=== PATIENT | male | born 1960 | race Caucasian/White ===

== ENCOUNTER 2018-05-29 07:02 | Emergency (ER) | payer BC ==
[2018-05-29] MEDS ORDERED: Albuterol/Ipratropium 3.0-0.5 MG/3 ML Neb Soln NEB ONE (07:18)
[2018-05-29] MEDS ORDERED: methylPREDNISolone Sodium Succinate 125 MG/2 ML SDV IVPUSH ONE (07:19)
[2018-05-29] MEDS ORDERED: Sodium Chloride 0.9% 1,000 ML IV SCH (07:30)
--- NOTE | 2018-05-29 07:31 | EDM.PDOC ---
ED HPI GENERAL MEDICAL PROBLEM - General Chief Complaint: Respiratory Problem Stated Complaint: TROUBLE BREATHING- COPD Time Seen by Provider: 05/29/18 07:30 Source of Information: Reports: Patient - History of Present Illness INITIAL COMMENTS - FREE TEXT/NARRATIVE: HISTORY AND PHYSICAL: History of present illness: [Patient presents with shortness of breath increasing in severity over the last 8 days, he does have a history of COPD he is on a steroid inhaler as well as has a rescue inhaler at his disposal he has been using his rescue inhaler more as he has recently had a a field her rest at around his house as well as he works in a foundary No fever nausea vomiting chills sweats no chest pain headache dizziness palpitation no bowel or urine symptoms Initially patient had decreased breath sounds he did get Solu-Medrol and a DuoNeb chest is clear moving air well without wheeze O2 sats remained above 90, we did check an ambulatory O2 sat again above 90 Patient is in no distress with no pursed lip breathing or tripoding no accessory muscles states he feels much better Review of systems: As per history of present illness and below otherwise all systems reviewed and negative. Past medical history: As per history of present illness and as reviewed below otherwise noncontributory. Surgical history: As per history of present illness and as reviewed below otherwise noncontributory. Social history: No reported history of drug or alcohol abuse. Family history: As per history of present illness and as reviewed below otherwise noncontributory. Physical exam: HEENT: Atraumatic, normocephalic, pupils reactive, negative for conjunctival pallor or scleral icterus, mucous membranes moist, throat clear, neck supple, nontender, trachea midline. Lungs: Clear to auscultation, breath sounds equal bilaterally, chest nontender. Heart: S1S2, regular, negative for clicks, rubs, or JVD. Abdomen: Soft, nondistended, nontender. Negative for masses or hepatosplenomegaly. Negative for costovertebral tenderness. Pelvis: Stable nontender. Genitourinary: Deferred. Rectal: Deferred. Extremities: Atraumatic, negative for cords or calf pain. Neurovascular unremarkable. Neuro: Awake, alert, oriented. Cranial nerves II through XII unremarkable. Cerebellum unremarkable. Motor and sensory unremarkable throughout. Exam nonfocal. Diagnostics: [CBC CMP troponin BNP INR D-dimer Chest 1 view ] Therapeutics: [Normal saline 1 25 mL per hour Solu-Medrol 125 mg IV DuoNeb Prednisone 10 mg, 43 days 3 tabs 3 days 2 tabs 3 days 1 tab 3 days ] Impression: [COPD] exacerbation Definitive disposition and diagnosis as appropriate pending reevaluation and review of above. - Related Data Allergies Allergy/AdvReac Type Severity Reaction Status Date / Time No Known Allergies Allergy Verified 05/29/18 07:22 Home Meds: Home Meds Albuterol [Ventolin HFA] 2 puff INH ASDIRECTED 05/29/18 [History] Glycopyrrolate/Formoterol Fum [Bevespi Aerosphere Inhaler] 2 puff INH BID [History] Past Medical History Respiratory History: Reports: COPD - Infectious Disease History Infectious Disease History: Reports: Chicken Pox, Hepatitis C, Measles Social & Family History - Family History Family Medical History: Noncontributory - Tobacco Use Smoking Status *Q: Former Smoker Used Tobacco, but Quit: Yes Month/Year Tobacco Last Used: 2016 - Caffeine Use Caffeine Use: Reports: Coffee - Recreational Drug Use Recreational Drug Use: No ED ROS GENERAL - Review of Systems Review Of Systems: See Below ED EXAM, GENERAL - Physical Exam Exam: See Below Course - Vital Signs Last Recorded V/S: Last Vital Signs Temp 97.6 F 05/29/18 07:19 Pulse 89 05/29/18 07:19 Resp 18 05/29/18 07:19 BP 162/99 H 05/29/18 07:19 Pulse Ox 90 L 05/29/18 07:19 - Orders/Labs/Meds Orders: Active Orders 24 hr Category Date Time Status EKG Documentation Completion [RC] STAT Care 05/29/18 07:18 Active RT Aerosol Therapy [RC] ASDIRECTED Care 05/29/18 07:18 Active Chest 1V Frontal [CR] Stat Exams 05/29/18 07:18 Taken D-DIMER QUANTITATIVE [COAG] Stat Lab 05/29/18 07:40 Received INR,PT,PROTHROMBIN TIME [COAG] Stat Lab 05/29/18 07:40 Received Sodium Chloride 0.9% [Normal Saline] 1,000 ml Med 05/29/18 07:30 Active IV STAT Medication Orders Sodium Chloride (Normal Saline) 1,000 mls @ 125 mls/hr IV STAT NADEGE Last Admin: 05/29/18 07:45 Dose: 125 mls/hr Labs: Laboratory Tests 05/29/18 05/29/18 05/29/18 Range/Units 07:40 07:40 07:40 WBC 8.99 (4.0-11.0) K/uL RBC 5.02 (4.50-5.90) M/uL Hgb 15.2 (13.0-17.0) g/dL Hct 42.7 (38.0-50.0) % MCV 85.1 (80.0-98.0) fL MCH 30.3 (27.0-32.0) pg MCHC 35.6 (31.0-37.0) g/dL RDW Std Deviation 39.5 (28.0-62.0) fl RDW Coeff of Lissette 13 (11.0-15.0) % Plt Count 259 (150-400) K/uL MPV 9.30 (7.40-12.00) fL Add Manual Diff YES Neutrophils % (Manual) 50 (48.0-80.0) % Band Neutrophils % 1 % Lymphocytes % (Manual) 18 (16.0-40.0) % Monocytes % (Manual) 3 (0.0-15.0) % Eosinophils % (Manual) 23 H (0.0-7.0) % Basophils % (Manual) 5 H (0.0-1.5) % Nucleated RBC % 0.0 /100WBC Absolute Seg Neuts 4.5 (1.4-5.7) Band Neutrophils # 0.1 Lymphocytes # (Manual) 1.6 (0.6-2.4) Monocytes # (Manual) 0.3 (0.0-0.8) Eosinophils # (Manual) 2.1 H (0.0-0.7) Basophils # (Manual) 0.4 H (0.0-0.1) Nucleated RBCs # 0 K/uL Sodium 140 (136-148) mmol/L Potassium 3.7 (3.5-5.1) mmol/L Chloride 105 (98-107) mmol/L Carbon Dioxide 27.9 (21.0-32.0) mmol/L BUN 14 (7.0-18.0) mg/dL Creatinine 1.1 (0.8-1.3) mg/dL Est Cr Clr Drug Dosing 72.31 mL/min Estimated GFR (MDRD) > 60.0 ml/min Glucose 102 (74-106) mg/dL Calcium 9.4 (8.5-10.1) mg/dL Total Bilirubin 0.9 (0.2-1.0) mg/dL AST 17 (15-37) IU/L ALT 30 (14-63) IU/L Alkaline Phosphatase 97 (46-116) U/L Troponin I < 0.050 (0.000-0.056) ng/mL B-Natriuretic Peptide < 15 (<100) PG/ML Total Protein 8.2 (6.4-8.2) g/dL Albumin 4.2 (3.4-5.0) g/dL Globulin 4.0 H (2.0-3.5) g/dL Albumin/Globulin Ratio 1.1 L (1.3-2.8) Urine Color Urine Appearance Urine pH (5.0-8.0) Ur Specific [place] (1.001-1.035) Urine Protein (NEGATIVE) mg/dL Urine Glucose (UA) (NEGATIVE) mg/dL Urine Ketones (NEGATIVE) mg/dL Urine Occult Blood (NEGATIVE) Urine Nitrite (NEGATIVE) Urine Bilirubin (NEGATIVE) Urine Urobilinogen (<2.0) EU/dL Ur Leukocyte Esterase (NEGATIVE) Urine RBC (0-2/HPF) Urine WBC (0-5/HPF) Ur Epithelial Cells (NONE-FEW) Amorphous Sediment (NEGATIVE) Urine Bacteria (NEGATIVE) 05/29/18 Range/Units 07:50 WBC (4.0-11.0) K/uL RBC (4.50-5.90) M/uL Hgb (13.0-17.0) g/dL Hct (38.0-50.0) % MCV (80.0-98.0) fL MCH (27.0-32.0) pg MCHC (31.0-37.0) g/dL RDW Std Deviation (28.0-62.0) fl RDW Coeff of Lissette (11.0-15.0) % Plt Count (150-400) K/uL MPV (7.40-12.00) fL Add Manual Diff Neutrophils % (Manual) (48.0-80.0) % Band Neutrophils % % Lymphocytes % (Manual) (16.0-40.0) % Monocytes % (Manual) (0.0-15.0) % Eosinophils % (Manual) (0.0-7.0) % Basophils % (Manual) (0.0-1.5) % Nucleated RBC % /100WBC Absolute Seg Neuts (1.4-5.7) Band Neutrophils # Lymphocytes # (Manual) (0.6-2.4) Monocytes # (Manual) (0.0-0.8) Eosinophils # (Manual) (0.0-0.7) Basophils # (Manual) (0.0-0.1) Nucleated RBCs # K/uL Sodium (136-148) mmol/L Potassium (3.5-5.1) mmol/L Chloride (98-107) mmol/L Carbon Dioxide (21.0-32.0) mmol/L BUN (7.0-18.0) mg/dL Creatinine (0.8-1.3) mg/dL Est Cr Clr Drug Dosing mL/min Estimated GFR (MDRD) ml/min Glucose (74-106) mg/dL Calcium (8.5-10.1) mg/dL Total Bilirubin (0.2-1.0) mg/dL AST (15-37) IU/L ALT (14-63) IU/L Alkaline Phosphatase (46-116) U/L Troponin I (0.000-0.056) ng/mL B-Natriuretic Peptide (<100) PG/ML Total Protein (6.4-8.2) g/dL Albumin (3.4-5.0) g/dL Globulin (2.0-3.5) g/dL Albumin/Globulin Ratio (1.3-2.8) Urine Color YELLOW Urine Appearance CLEAR Urine pH 6.0 (5.0-8.0) Ur Specific [place] >= 1.030 (1.001-1.035) Urine Protein NEGATIVE (NEGATIVE) mg/dL Urine Glucose (UA) NEGATIVE (NEGATIVE) mg/dL Urine Ketones NEGATIVE (NEGATIVE) mg/dL Urine Occult Blood NEGATIVE (NEGATIVE) Urine Nitrite NEGATIVE (NEGATIVE) Urine Bilirubin NEGATIVE (NEGATIVE) Urine Urobilinogen 0.2 (<2.0) EU/dL Ur Leukocyte Esterase NEGATIVE (NEGATIVE) Urine RBC NONE SEEN (0-2/HPF) Urine WBC 0-1 (0-5/HPF) Ur Epithelial Cells RARE (NONE-FEW) Amorphous Sediment RARE (NEGATIVE) Urine Bacteria RARE (NEGATIVE) Meds: Medications Generic Name Dose Route Start Last Admin Trade Name Freq PRN Reason Stop Dose Admin Sodium Chloride 1,000 mls @ 125 mls/hr 05/29/18 07:30 05/29/18 07:45 Normal Saline IV 125 mls/hr STAT NADEGE Administration Discontinued Medications Generic Name Dose Route Start Last Admin Trade Name Freq PRN Reason Stop Dose Admin Albuterol/Ipratropium 3 ml 05/29/18 07:18 05/29/18 07:33 Duoneb 3.0-0.5 Mg/3 Ml NEB 05/29/18 07:19 3 ml ONETIME ONE Administration Methylprednisolone Sodium Succinate 125 mg 05/29/18 07:19 05/29/18 07:45 Solu-Medrol IVPUSH 05/29/18 07:20 125 mg ONETIME ONE Administration Departure - Departure Time of Disposition: :07 Disposition: Home, Self-Care 01 Condition: Good Clinical Impression: COPD exacerbation - Discharge Information Referrals: Rodrigo Mendez MD [Primary Care Provider] - Forms: ED Department Discharge Additional Instructions: Medications as prescribed Return if symptoms persist or worsen Follow-up with primary care in 2 weeks sooner as needed The following information is given to patients seen in the emergency department who are being discharged to home. This information is to outline your options for follow-up care. We provide all patients seen in our emergency department with a follow-up referral. The need for follow-up, as well as the timing and circumstances, are variable depending upon the specifics of your emergency department visit. If you don't have a primary care physician on staff, we will provide you with a referral. We always advise you to contact your personal physician following an emergency department visit to inform them of the circumstance of the visit and for follow-up with them and/or the need for any referrals to a consulting specialist. The emergency department will also refer you to a specialist when appropriate. This referral assures that you have the opportunity for follow-up care with a specialist. All of these measure are taken in an effort to provide you with optimal care, which includes your follow-up. Under all circumstances we always encourage you to contact your private physician who remains a resource for coordinating your care. When calling for follow-up care, please make the office aware that this follow-up is from your recent emergency room visit. If for any reason you are refused follow-up, please contact the [facility] emergency department at and asked to speak to the emergency department charge nurse. - My Orders Last 24 Hours: My Active Orders 05/29/18 07:18 EKG Documentation Completion [RC] STAT RT Aerosol Therapy [RC] ASDIRECTED Chest 1V Frontal [CR] Stat 05/29/18 07:30 Sodium Chloride 0.9% [Normal Saline] 1,000 ml IV STAT 05/29/18 07:40 D-DIMER QUANTITATIVE [COAG] Stat INR,PT,PROTHROMBIN TIME [COAG] Stat - Assessment/Plan Last 24 Hours: My Active Orders 05/29/18 07:18 EKG Documentation Completion [RC] STAT RT Aerosol Therapy [RC] ASDIRECTED Chest 1V Frontal [CR] Stat 05/29/18 07:30 Sodium Chloride 0.9% [Normal Saline] 1,000 ml IV STAT 05/29/18 07:40 D-DIMER QUANTITATIVE [COAG] Stat INR,PT,PROTHROMBIN TIME [COAG] Stat
[2018-05-29 08:34] LABS: CHLORIDE,CL 105 mmol/L (98-107); SODIUM,NA 140 mmol/L (136-148)
--- NOTE | 2018-05-30 13:36 | CR ---
EXAM DATE: 05/29/18 PATIENT'S AGE: 58 Patient: KRYSTYNA CANTOR Facility: [place], [place] Site . Site : 1960 Study: XRay Chest [id number]/17/2018 8:14:03 AM Ordering Physician: Cinthya Brand Final Report: INDICATION: Shortness of breath. COMPARISON: Chest radiograph August 31, 2017. TECHNIQUE: Portable AP chest. FINDINGS: Normal size cardiac silhouette .clear lung osman without evidence of acute pneumonic infiltrates or CHF. No pneumothorax or pleural effusion. No interval change. IMPRESSION: Negative portable AP chest. Dictated by Kiera Teresa MD @ May 29 2018 8:32AM (Electronic Signature) Report Signed by Proxy. [facility]
== END 2018-05-29 09:20 | disposition home or self-care (01) ==
LOC: MW.ED 07:02
DX: J44.1 Chronic obstructive pulmonary disease with (acute) exacerbation (principal); Z79.899 Other long term (current) drug therapy; Z87.891 Personal history of nicotine dependence
CPT/HCPCS: 36415; 71045; 80053; 81001; 83880; 84484; 85025; 85379; 85610; 93005; 94640; 96361; 96374; 99285; J2930; J7040; J7620-GY

== ENCOUNTER 2024-08-02 08:49 | Day surgery (SDC) | payer BC, MEDICARE ==
[~2024-08-02 08:49] MED LIST: Sodium Chloride 0.9% 10 ML Syringe FLUSH PRN; Sodium Chloride 0.9% 2.5 ML Syringe FLUSH PRN; Sodium Chloride 0.9% 20 ML SDV IV PRN
[2024-08-02] MEDS: Lactated Ringers 1,000 ML IV SCH (09:17)
[2024-08-02] MEDS ORDERED: Propofol 200 MG/20 ML SDV ONE (09:53)
[2024-08-02] MEDS ORDERED: Lidocaine 2% 5 ML SDV ONE (09:55)
== END 2024-08-02 11:35 | disposition home or self-care (01) ==
LOC: MW.SDS 08:49
PROVIDERS: ATTEND Surgery
DX: K20.90 Esophagitis, unspecified without bleeding (principal); D50.9 Iron deficiency anemia, unspecified; J44.9 Chronic obstructive pulmonary disease, unspecified; E03.9 Hypothyroidism, unspecified
CPT/HCPCS: 43239; 45378; 88305; J2704; J7120; 00813; J3490